=== PATIENT | male | born 1990 | race Caucasian/White ===

== ENCOUNTER → 2016-06-08 | Outpatient (REF) ==
[~2016-06-08] MED LIST: EFFE75CA75 PO; MINI2CAP PO; TRAZ100T4 PO; WELL100T2 PO
--- NOTE | 2016-06-08 10:29 | REP ---
SINUSES, FOUR VIEWS: HISTORY: Degenerative disc disease. The sinuses are clear. There is no fracture or bone lesion. IMPRESSION: Normal study. Signed by Jus Abdi MD 06/08/2016 10:38 A
== END ==
LOC: M SMT 08:46
PROVIDERS: ATTEND Internal Medicine
DX: Z02.1 Encounter for pre-employment examination (principal)

== ENCOUNTER → 2016-06-28 | Outpatient (CLI) | payer OTHER ==
[~2016-06-28] MED LIST changes: +E-Z PAQUE 60% w/v SUSP 355ML BOTTLE As Ordered ONE; +E-Z-GAS II EFFERVESCENT PACKET (SODIUM BICARB./CITRIC ACID/SIMETHICONE) As Ordered ONE; +E-Z-HD 98% w/w 340GM SUSP BTL As Ordered ONE
--- NOTE | 2016-06-28 13:57 | REP ---
DOUBLE CONTRAST UPPER GI SERIES: HISTORY: Recurrent heartburn. 1 minute 7 seconds of fluoroscopy time is reported. In addition to the sales support specialist radiograph, 15 fluoroscopic spot films were obtained. FINDINGS: Preliminary sales support specialist radiograph is unremarkable. Esophagus shows normal caliber course and peristalsis. Reflux was not witnessed during exam. No hiatal hernia is seen. The stomach displays normal rugal folds and a normal mucosal pattern. No mass or ulcer seen. Pylorus is smooth. Duodenal bulb was fully distensible and clear. The C-loop is not widened. Remainder the visualized small bowel is unremarkable. IMPRESSION: Negative double contrast upper GI series. Signed by Elian Nunn MD 06/28/2016 06:19 P
== END ==
LOC: M RAD 09:34
PROVIDERS: ATTEND Internal Medicine
DX: R12 Heartburn (principal)